=== PATIENT | female | born 1945 | race Caucasian/White ===

== ENCOUNTER 2020-11-30 21:01 | Emergency (ER) | payer BC, SELFPAY ==
[2020-11-30 21:12] VITALS: BP 107/88; PULSE 88; RESP 16; TEMP 36.6; O2SAT 98
--- NOTE | 2020-11-30 21:15 | DI.RAD_ITS ---
Exam(s) XR WRIST RT LIMITED XR WRIST RT COMPLETE EXAM: XR WRIST RT COMPLETE CLINICAL HISTORY: injury TECHNIQUE: COMPARISON: CR,XR XR WRIST RT LIMITED from 11/30/2020 CR,XR XR WRIST RT LIMITED from 11/30/2020 FINDINGS: Three views were obtained initially and show a moderately displaced moderately comminuted fracture of the distal radius which involves the distal articular surface. Two follow-up views were obtained with the wrist in a splint and show no gross interval change or sli ght interval improvement in alignment of fracture fragments. IMPRESSION: RADIATION DOSE DELIVERED: Total DLP
--- NOTE | 2020-11-30 21:32 | ED.GENADUL_ITS ---
Discharge Plan Disposition Patient Disposition: HOME Condition: Stable Discharge Details Clinical Impression: Closed fracture of right distal radius Primary Care Provider: Unknown,Unknown ED Provider: Shakila Blanchard Home Meds and New Rx's Prescriptions: No Action Xarelto 2.5 mg Tablet 2.5 mg PO DAILY RF: 0 Discharge Instructions Instructions: Wrist Fracture in Adults (ED), Splint Care (ED) Additional Instructions: Please do not get splint wet. Keep the splint on until follow-up with orthopedics. Please call orthopedics of your choosing on Wednesday morning for an appointment this week. If your fingers turn cold blue numb or tingling please loosen up the Can wrap. If you continue have severe pain or problems with circulation please return to the emergency department or be seen sooner. Take pain medication as directed for moderate to severe pain. Take it with food and no driving or operating heavy machinery. Please take Tylenol or Ibuprofen with food every 4-6 hours as needed for pain and swelling. Referrals: Abdon Moran MD [ [facility] STAFF PHYSICIAN] - 1 week Discharge Data Discharge Date/Time-TO BE ENTERED AT DEPARTURE: 12/01/20 00:10 Medical Decision Making 75-year-old female presents to the ER chief complaint right rib pain and swelling status post mechanical fall prior to arrival. Patient was dancing at a wedding and was told around she lost her footing landing back on her buttock and her outstretched arms. Complaining of right wrist pain. No significant obvious deformity but does have dorsal swelling. Small abrasion noted to dorsum of her middle finger. She denies any head neck back or pelvic pain. She is on Xarelto for history of factor V Leiden and PE. She also has a past medical history of cardiac bypass and breast cancer. TECHNIQUE: Imaging protocol: XR Right wrist. Views: 3 or more views. COMPARISON: No relevant prior studies available. FINDINGS: Bones/joints: Comminuted, minimally angulated, impacted, minimally displaced fracture of distal radius with fracture line extending to radiocarpal joint space. No subluxation. Soft tissues: Soft tissue swelling. IMPRESSION: No acute findings. Thank you for allowing us to participate in the care of your patient. Dictated and Authenticated by: Johnny Mcrae DO CR XR WRIST RT COMPLETE 11/30/2020 9:47 PM FINDINGS: Bones/joints: Improved alignment of distal radius fracture fragments following reduction and splint placement. No subluxation. Soft tissues: Fine evaluation limited due to presence of the splint. IMPRESSION: Improved anatomic alignment of radius fracture fragments. Postreduction x-rays show slight improvement in the angulation. Plan for follow-up with orthopedic in patient's hometown instructed on splint care. Patient was given 4 tablets of oxycodone 5 mg to go. Instructed on strict return instructions. HPI General Mode of arrival: ambulatory . Date/Time Provider Initiated Documentation: 11/30/20 21:08 . Limitations to Documentation: no limitations . Information obtained by: patient and RN notes reviewed . HPI Narrative: 75-year-old female presents to the ER chief complaint right rib pain and swelling status post mechanical fall prior to arrival. Patient was dancing at a wedding and was told around she lost her footing landing back on her buttock and her outstretched arms. Complaining of right wrist pain. No significant obvious deformity but does have dorsal swelling. Small abrasion noted to dorsum of her middle finger. She denies any head neck back or pelvic pain. She is on Xarelto for history of factor V Leiden and PE. She also has a past medical history of cardiac bypass and breast cancer. Related Data Home Medications Medication Instructions Recorded Confirmed rivaroxaban [Xarelto] 2.5 mg PO DAILY 11/30/20 11/30/20 Allergies Allergy/AdvReac Type Severity Reaction Status Date / Time Iodinated Contrast Media Allergy Unverified 11/30/20 21:17 General Stated Complaint: Orthopedic MIK: 4 Review of Systems All systems reviewed & are unremarkable except as noted in HPI and below PFSH Social History Smoking/Tobacco Use Status: Never Smoking risk assessment performed?: Yes Alcohol Intake: current Drug use: Never Substance use type: does not use Do you feel safe at home: Yes Do you feel safe in your relationship?: Yes Exam Narrative Exam Narrative: General: Well Developed, Awake and Alert, conversant. Skin: Warm and Dry HEENT: Head: No palpable deformities, Normocephalic Eyes: Pupils PERRLA, EOM's intact. No periorbital eccymosis or step off Ears: Canal patent. Tympanic membranes are clear . No lal's sign, no hemptympanum. Nose/Face: Atraumatic. Facial bones nontender to palpation and stable with manipulation. Mouth/Throat: No intraoral trauma. Teeth and mandible are intact. Neck: No midline tenderness, no step off, no deformity to palpation of C-spine. Trachea midline. Chest: No surface trauma. Nontender without crepitus or deformity. Lungs clear to ausculatation bilaterally. Heart: RRR, no rubs, murmurs or gallop. Abdomen: No abrasions, ecchymosis, or surface trauma. Nondistended. Nontender to palpation no guarding, rebound, or rigidity. Pelvis: Nontender to palpation and stable to compression. Femoral pulses strong and equal Extremities: no surface trauma. Sensation intact. Peripheral pulses intact and equal. Swelling noted to the right wrist, cap refill less than 2 seconds distally. No tenderness noted to elbow or shoulder. Neuro: ANO x4, GCS 15, cranial nerves II through XII intact. Motor and sensory exam nonfocal. Reflexes are symmetric. Course Vital Signs Vital signs: Vital Signs Temperature 36.6 C 11/30/20 21:12 Pulse 88 11/30/20 21:12 Respiratory Rate 16 11/30/20 21:12 Blood Pressure 107/88 11/30/20 21:12 Pulse Oximetry 98 11/30/20 21:12 Temperature 36.6 C 11/30/20 21:12 Temperature Source Temporal Artery Scan 11/30/20 21:12 Pulse 88 11/30/20 21:12 Respiratory Rate 16 11/30/20 21:12 Respiratory Effort Non-Labored 11/30/20 21:19 Blood Pressure 107/88 11/30/20 21:12 Blood Pressure Position Sitting 11/30/20 21:12 Pulse Oximetry 98 11/30/20 21:12 Oxygen Delivery Method Room Air 11/30/20 21:12 Oxygen Flow Rate 0 11/30/20 21:12 Pain Level 7 11/30/20 21:21 Procedures Nerve Block Nerve Block 1: Time out performed: No Local Anesthetic: Lidocaine 1% Amount of anesthesia used (mL): 9 Side: right Nerve Blocks: radial and hematoma block Patient Tolerated Procedure: well and no complications Complications: none Orthopedic Fracture Reduction Fracture #1: Time Out Performed: No Side: right Fracture Reduction Location: radius Analgesia: hematoma block Technique: direct manipulation and finger traps Post Reduction X-rays Demonstrate: acceptable reduction Post-reduction neuro exam: intact Post-reduction vascular exam: intact Splint Applied: Yes Patient Tolerated Procedure: well and no complications Orthopedic Splinting/Casting Injury #1: Side: right Upper Extremity Injury Location: wrist Upper Extremity Immobilizer: sling/shoulder immobilizer, volar splint and Can wrap
[2020-11-30] MEDS: Acetaminophen 500 MG TAB PO (21:54)
--- NOTE | 2020-11-30 22:11 | DI.VRAD_ITS ---
PROCEDURE INFORMATION: Exam: XR Right Wrist Exam date and time: 11/30/2020 9:24 PM Age: 75 years old Clinical indication: Pain; Wrist; Right; Patient HX: Injury TECHNIQUE: Imaging protocol: XR Right wrist. Views: 3 or more views. COMPARISON: No relevant prior studies available. FINDINGS: Bones/joints: Comminuted, minimally angulated, impacted, minimally displaced fracture of distal radius with fracture line extending to radiocarpal joint space. No subluxation. Soft tissues: Soft tissue swelling. IMPRESSION: No acute findings. Dictated and Authenticated by: Johnny Mcrae MD. Ordering:MELL Jhaveri MD
--- NOTE | 2020-11-30 23:37 | DI.VRAD_ITS ---
PROCEDURE INFORMATION: Exam: XR Right Wrist Exam date and time: 11/30/2020 11:16 PM Age: 75 years old Clinical indication: Screening exam; Post-reduction; Patient HX: Post reduction TECHNIQUE: Imaging protocol: XR Right wrist. Views: 1 or 2 views. COMPARISON: CR XR WRIST RT COMPLETE 11/30/2020 9:47 PM FINDINGS: Bones/joints: Improved alignment of distal radius fracture fragments following reduction and splint placement. No subluxation. Soft tissues: Fine evaluation limited due to presence of the splint. IMPRESSION: Improved anatomic alignment of radius fracture fragments. Dictated and Authenticated by: Johnny Mcrae MD. Ordering:MELL Jhaveri MD
== END 2020-12-01 00:10 | disposition home or self-care (01) ==
PROVIDERS: Emergency Provider Registered Nurse Emergency
DX: S52.591A Other fractures of lower end of right radius, initial encounter for closed fracture (principal); W01.0XXA Fall on same level from slipping, tripping and stumbling without subsequent striking against object, initial encounter
CPT/HCPCS: 25605; 73100; 73110